=== PATIENT | female | born 1995 | race Caucasian/White ===

== ENCOUNTER 2018-10-27 11:48 | Inpatient (IN) | payer OTHER ==
[2018-10-27] MEDS ORDERED: RINGERS SOLUTION,LACTATED 1,000 ML IV PRN (12:14)
[2018-10-27] MEDS ORDERED: RINGERS SOLUTION,LACTATED 1,000 ML IV ONE (12:14)
--- NOTE | 2018-10-27 12:31 | Admission Physical ---
Datetime Report Generated by CPN: 10/27/2018 12:31 CURRENT ADMISSION Chief Complaint: Uterine Contractions Admit Impression : Term, Intrauterine ; Active Labor Admit Plan: Admit to Unit ALLERGIES Medication Allergies: No Latex: No Latex Allergies Food Allergies: none Environmental Allergies: none OBSTETRICAL HISTORY EDC: 10/30/2018 00:00 : 3 Para: 1 Term: 1 IAB: 1 Livin Gestational Diabetes: No Rh Sensitization: No Incompetent Cervix: No DOMINGO: No Infertility: No ART Treatment: No Uterine Anomaly: No IUGR: No Hx Previous C/S: No Macrosomia: No Hx Loss/Stillborn: No PIH: No Hx : No Placenta Previa/Abruption: No Depression/PP Depression: No PTL/PROM: No Post Hemorrhage: No Current Procedures: Ultrasound Obstetrical History Comments: G1- G2- current SEE RECORDS Alcohol: No Marijuana : No Cocaine: No Other Illicit Drugs: No Cigarettes: Never Smoker. [id number] MEDICAL HISTORY Hosp/Surgery: Yes Anesthetic Complications: No Other Medical Diseases: No Significant Family History: No Trauma/Violence : No Medical History Comments: childbirth PHYSICAL EXAM General: Normal HEENT: Normal Neurologic: Normal Thyroid: Normal Heart: Normal Lungs: Normal Breast: Normal Back: Normal Abdomen: Normal Genitourinary Exam: Normal Extremities: Normal DTRs: Normal Pelvic Type: Adequate Vital Signs: Reviewed; Within Normal Limits VAGINAL EXAM Contraction Comments: q2 MEMBRANES Membranes: Intact FETUS A EGA: 39.4 Monitoring: External US FHR- Baseline: 150 Variability: Moderate 6-25bpm Accelerations: 15X15 Decelerations: None FHR Category: Category I Admit Comment: at 39. 4 wks presents c/o increasing contractions. Denies SROM or bleeding. GBS negative. Ve per RN /-1, Vtx on [place]. EFW 7+7 last week on ultrasound in the office. Plan to admit, pt desires an epidural. Position changes encouraged. Anticipate . Attending MD is Dr Loredo PLANS FOR LABOR AND DELIVERY Labor and Delivery: None Pain Management: Epidural Feeding Preference: Formula Benefit of Breast Feed Discussed: Yes Circumcision: Yes INFORMED CONSENT Assignment: Stalin Loredo MD Signature: with User ID: [email or web address] : with User ID: [email or web address]
[2018-10-27 12:33] LABS: APPEARANCE,URINE CLOUDY; BILIRUBIN,URINE NEGATIVE (NEGATIVE); COLOR,URINE YELLOW; GLUCOSE, URINE NEGATIVE (NEGATIVE); KETONES,URINE NEGATIVE (NEGATIVE); LEUKOCYTE ESTERASE,URINE SMALL (NEGATIVE); NITRITE,URINE NEGATIVE (NEGATIVE); PROTEIN,URINE NEGATIVE (NEGATIVE); URINE SPECIFIC GRAVITY 1.025; UROBILINOGEN,URINE NEGATIVE mg/dL (<2.0)
[2018-10-27 13:01] LABS: ABSOLUTE LYMPHOCYTES (AUTO) 1.1 10^3/uL (0.5-4.7); ABSOLUTE MONOCYTES (AUTO) 0.3 10^3/uL (0.1-1.4); ABSOLUTE NEUT (AUTO) 7.5 10^3/uL (1.7-8.2); BASOPHILS % (AUTO) 0.2 % (0-2); EOSINOPHILS % (AUTO) 0.1 % (0-6); HEMATOCRIT 34.7 % (36.0-47.0); HEMOGLOBIN 11.7 g/dL (12.0-15.5); LYMPHOCYTES % (AUTO) 12.8 % (13-45); MEAN CORPUSCULAR HEMOGLOBIN 29.4 pg (27.0-33.4); MEAN CORPUSCULAR HGB CONC 33.6 g/dL (32.0-36.0); MEAN CORPUSCULAR VOLUME 87 fl (80-97); MONOCYTES % (AUTO) 3.2 % (3-13); PLATELET COUNT 140 10^3/uL (150-450); RED BLOOD COUNT 3.97 10^6/uL (3.72-5.28); RED CELL DISTRIBUTION WIDTH 13.3 % (11.5-14.0); SEGMENTED NEUTROPHILS % (AUTO) 83.7 % (42-78); TOTAL CELLS COUNTED % (AUTO) 100 %
[2018-10-27] MEDS ORDERED: LIDOCAINE 1% INJ-PF (10 MG/ML) 30 ML SDV ONE (13:35)
[2018-10-27] MEDS ORDERED: MISOPROSTOL 0.2 MG TABLET ONE (13:35)
[2018-10-27] MEDS ORDERED: OXYTOCIN/NORMAL SALINE 20 UNIT/1,000 ML RTUINJ ONE (13:35)
[2018-10-27] MEDS ORDERED: PHENYLEPHRINE HCL INJ/PF 10 MG/1 ML SDV ONE (13:38)
[2018-10-27] MEDS ORDERED: FENTANYL CITRATE INJ/PF 100 MCG/2 ML AMPUL ONE (13:38)
[2018-10-27] MEDS ORDERED: EPHEDRINE SULFATE INJ 50 MG/1 ML AMPULE ONE (13:38)
[2018-10-27] MEDS ORDERED: FENTANYL/BUPIVACAINE/NS/PF 0 MCG/0 ML RTUINJ EPI ONE (13:39)
[2018-10-27] MEDS ORDERED: BUPIVACAINE HCL 0.25 % INJ/PF (2.5 MG/1 ML) 30 ML VIAL ONE (13:39)
[2018-10-27] MEDS ORDERED: LIDOCAINE 1.5%/EPINEPHRINE INJ 5 ML AMP ONE (13:39)
[2018-10-27] MEDS ORDERED: BENZOCAINE/MENTHOL AEROSOL SPRAY 56 ML TOP PRN (15:07)
[2018-10-27] MEDS ORDERED: ZOLPIDEM TARTRATE 5 MG TABLET PO PRN (15:07)
[2018-10-27] MEDS ORDERED: MEASLES,MUMPS&RUBELLA VACC/PF 0.5 ML VIAL SUBCUT PRN (15:07)
[2018-10-27] MEDS ORDERED: OXYTOCIN/NORMAL SALINE 20 UNIT/1,000 ML RTUINJ IV PRN (15:07)
[2018-10-27] MEDS ORDERED: ACETAMINOPHEN WITH CODEINE #3 TABLET PO PRN (15:07)
[2018-10-27] MEDS ORDERED: DIBUCAINE 1% OINTMENT 56 GM TP PRN (15:07)
[2018-10-27] MEDS ORDERED: DIPH/PERTUSS(ACELL)/TETANUS VAC/PF 0.5 ML SYR (>=10YO) IM PRN (15:07)
[2018-10-27] MEDS ORDERED: IBUPROFEN 800 MG TABLET ONE (15:28)
[2018-10-27] MEDS: IBUPROFEN 800 MG TABLET PO SCH ×2 (15:32→21:53)
--- NOTE | 2018-10-27 15:49 | Warning Signs in Babies ---
VOD Warning Signs Datetime Report Generated by [facility]: 10/27/2018 15:49 VOD#608 -Warning Signs in Babies: Viewed with Parent(s)/Family (10/27/2018 15:00:Anne Verma RN)
[2018-10-27] MEDS ORDERED: FERROUS SULFATE 325 MG TABLET PO ONE (17:52)
[2018-10-27] MEDS ORDERED: DOCUSATE SODIUM 100 MG CAPSULE ONE (17:52)
[2018-10-27] MEDS: FERROUS SULFATE 325 MG TABLET PO SCH (17:53)
[2018-10-27] MEDS: DOCUSATE SODIUM 100 MG CAPSULE PO SCH (17:53)
[2018-10-28] MEDS: IBUPROFEN 800 MG TABLET PO SCH ×3 (06:26→21:48)
[2018-10-28 08:53] LABS: HEMOGLOBIN 11.8 g/dL (12.0-15.5); MEAN CORPUSCULAR HEMOGLOBIN 29.7 pg (27.0-33.4); MEAN CORPUSCULAR HGB CONC 33.9 g/dL (32.0-36.0); MEAN CORPUSCULAR VOLUME 88 fl (80-97); PLATELET COUNT 148 10^3/uL (150-450); RED BLOOD COUNT 3.99 10^6/uL (3.72-5.28); RED CELL DISTRIBUTION WIDTH 13.4 % (11.5-14.0); WHITE BLOOD COUNT 10.6 10^3/uL (4.0-10.5)
--- NOTE | 2018-10-28 09:03 | Delivery Summary ---
Del Sum A-C Datetime Report Generated by CPN: 10/28/2018 09:02 DELIVERY PERSONNEL DELIVERY PERSONNEL: [id number] Delivery Doctor:: Noelle Barreto, CAROL Nurse Fender Mechanic Apprentice Certified:: Noelle Barreto CNM Labor and Delivery Nurse:: Anne Verma, plan checker Nurse:: Thu Magaña, RNC Student Observers:: Yani Ni, RN Application Project Leader/TUBE BUILDER: Khushboo Ventura TUBE BUILDER II Additional Personnel: : Lindy Balderas, RN MATERNAL INFORMATION Delivery Anesthesia: None Medications After Delivery: Pitocin Bolus-Please Comment Meds After Delivery Comment: pitocin 20 units in 1 L NS bolusing per order Maternal Complications: None Provider Comments: of VMI, delivered Direct OA, Nuchal Cord x 1 easily reduced. Baby boy vigorous and crying , placed on pts abdoman. Cord clamped and cut after one minute. Cord blood collected. Placenta S/C/I, FF with decreased lochia. IV Pitocin infusing, QBL 50 ml. Perineum Intact. Apgars 9,9. Mother and baby left in stable condition, plans to breastfeed. Attending MD is Dr Loredo. LABOR SUMMARY EDC: 10/30/2018 00:00 No. Babies in Womb: 1 Attempted: No Labor Anesthesia: None LABOR INFORMATION Reason for Induction: Not Applicable Onset of Labor: 10/27/2018 09:00 Complete Dilatation: 10/27/2018 14:44 Oxytocin: N/A Group B Beta Strep: negative Antibiotics # of Doses: 0 Steroids Given: None Reason Steroids Not Administered: Not Applicable MEMBRANES Membranes Rupture Method: Artificial Rupture of Membranes: 10/27/2018 14:04 Length of Rupture (hr): 0.83 Amniotic Fluid Color: Clear Amniotic Fluid Amount: Scant Amniotic Fluid Odor: Normal STAGES OF LABOR Stage 1 hr: 5 Stage 1 min: 44 Stage 2 hr: 0 Stage 2 min: 10 Stage 3 hr: 0 Stage 3 min: 4 Total Time in Labor hr: 5 Total Time in Labor min: 58 VAGINAL DELIVERY Episiotomy: None Laceration #1: None Laceration Extension #1: N/A Laceration Repair: Not Applicable Sponge Count Correct: N/A Sharps Count Correct: N/A CSECTION DELIVERY Primary Indication: N/A Secondary Indication: N/A CSection Incidence: N/A Labor: N/A Elective: N/A CSection Incision: N/A BABY A INFORMATION Infant Delivery Date/Time: 10/27/2018 14:54 Method of Delivery: Vaginal Method of Delivery: Vaginal Born in Route : No : N/A Forceps: N/A Vacuum Extraction: N/A Shoulder Dystocia : No PRESENTATION/POSITION BABY A Presentation: Cephalic Cephalic Presentation: Vertex Vertex Position: Right Occipital Anterior Breech Presentation: N/A PLACENTA INFORMATION BABY A Placenta Delivery Time : 10/27/2018 14:58 Placenta Method of Delivery: Spontaneous Placenta Method of Delivery: Spontaneous Placenta Status: Delivered SCORES BABY A Heart Rate 1 min: >100 bpm Resp Effort 1 min: Good Cry Reflex Irritability 1 min: Cough or Sneeze or Pulls Away Muscle Tone 1 min: Active Motion Color 1 min: Body [place], Extremities Blue Resuscitation Effort 1 min: Tactile Stimulation SCORE 1 MIN: 9 Heart Rate 5 min: >100 bpm Resp Effort 5 min: Good Cry Reflex Irritability 5 min: Cough or Sneeze or Pulls Away Muscle Tone 5 min: Active Motion Color 5 min: Body [place], Extremities Blue Resuscitation Effort 5 min: N/A SCORE 5 MIN: 9 Resuscitation Effort 10 min: N/A INFORMATION BABY A Gestational Age at Delivery: 39.4 Gestational Status: Full Term- 39- 40.6 Weeks Infant Outcome : Liveborn Infant Condition : Stable Infant Sex: Male Infant Sex: Male IDENTIFICATION BABY A Verification Date/Time: 10/27/2018 15:19 ID Band Number: [id number] Mother's Name Verified: Yes Infant RN Verifying Infant: CAnna Hoffck RN, MAnna Silverio, RN WEIGHT/LENGTH BABY A Infant Birthweight (gm): 3154 Weight (lb): 6 Weight (oz): 15 Infant Length (in): 20.00 Infant Length (cm): 50.80 CORD INFORMATION BABY A No. Cord Vessels: 3 Nuchal Cord : Around Neck x1, Loose Cord Blood Taken: Yes-For Storage (Mom's Blood type +) Infant Suction: None ASSESSMENT BABY A Infant Complications: None Physical Findings at Delivery: Bruising Physical Findings- Other: facial bruising noted Respirations: Appears Normal Skin to Skin: Yes Skin to Skin: Yes Stitcher Operator/ALS Called : No Infant Care By: J Field RN Transferred To: Remains with Mother BABY B INFORMATION : N/A SIGNATURES Assignment: Stalin Loredo MD Signature: with User ID: [email or web address] : with User ID: [email or web address]
[2018-10-28] MEDS: SENNOSIDES/DOCUSATE 8.6-50 MG 1 EACH TABLET PO SCH (09:55)
[2018-10-28] MEDS: PRENATAL VITAMIN W DHA CAPSULE PO SCH (09:55)
[2018-10-28] MEDS: DOCUSATE SODIUM 100 MG CAPSULE PO SCH ×2 (09:55→18:23)
[2018-10-28] MEDS: FERROUS SULFATE 325 MG TABLET PO SCH ×2 (09:56→18:23)
--- NOTE | 2018-10-28 10:17 | Delivery Summary ---
Del Sum A-C Datetime Report Generated by CPN: 10/28/2018 10:17 DELIVERY PERSONNEL DELIVERY PERSONNEL: [id number] Delivery Doctor:: Noelle Barreto CNM Nurse Teacher Aide Certified:: Noelle Barreto CNM Labor and Delivery Nurse:: Anne Verma RNhead filter press tender Nurse:: KAMARI Ortiz Student Observers:: Yani Ni RN Slider Assembler/ENAMEL CRACKER: Khushboo Ventura CNA II Additional Personnel: : Lindy Balderas, RN MATERNAL INFORMATION Delivery Anesthesia: None Medications After Delivery: Pitocin Bolus-Please Comment Meds After Delivery Comment: pitocin 20 units in 1 L NS bolusing per order Maternal Complications: None Provider Comments: of VMI, delivered Direct OA, Nuchal Cord x 1 easily reduced. Baby boy vigorous and crying , placed on pts abdoman. Cord clamped and cut after one minute. Cord blood collected. Placenta S/C/I, FF with decreased lochia. IV Pitocin infusing, QBL 50 ml. Perineum Intact. Apgars 9,9. Mother and baby left in stable condition, plans to breastfeed. Attending MD is Dr Loredo. LABOR SUMMARY EDC: 10/30/2018 00:00 No. Babies in Womb: 1 Attempted: No Labor Anesthesia: None LABOR INFORMATION Reason for Induction: Not Applicable Onset of Labor: 10/27/2018 09:00 Complete Dilatation: 10/27/2018 14:44 Oxytocin: N/A Group B Beta Strep: negative Antibiotics # of Doses: 0 Steroids Given: None Reason Steroids Not Administered: Not Applicable MEMBRANES Membranes Rupture Method: Artificial Rupture of Membranes: 10/27/2018 14:04 Length of Rupture (hr): 0.83 Amniotic Fluid Color: Clear Amniotic Fluid Amount: Scant Amniotic Fluid Odor: Normal STAGES OF LABOR Stage 1 hr: 5 Stage 1 min: 44 Stage 2 hr: 0 Stage 2 min: 10 Stage 3 hr: 0 Stage 3 min: 4 Total Time in Labor hr: 5 Total Time in Labor min: 58 VAGINAL DELIVERY Episiotomy: None Laceration #1: None Laceration Extension #1: N/A Laceration Repair: Not Applicable Sponge Count Correct: N/A Sharps Count Correct: N/A CSECTION DELIVERY Primary Indication: N/A Secondary Indication: N/A CSection Incidence: N/A Labor: N/A Elective: N/A CSection Incision: N/A BABY A INFORMATION Infant Delivery Date/Time: 10/27/2018 14:54 Method of Delivery: Vaginal Born in Route : No : N/A Forceps: N/A Vacuum Extraction: N/A Shoulder Dystocia : No PRESENTATION/POSITION BABY A Presentation: Cephalic Cephalic Presentation: Vertex Vertex Position: Right Occipital Anterior Breech Presentation: N/A PLACENTA INFORMATION BABY A Placenta Delivery Time : 10/27/2018 14:58 Placenta Method of Delivery: Spontaneous Placenta Status: Delivered SCORES BABY A Heart Rate 1 min: >100 bpm Resp Effort 1 min: Good Cry Reflex Irritability 1 min: Cough or Sneeze or Pulls Away Muscle Tone 1 min: Active Motion Color 1 min: Body [place], Extremities Blue Resuscitation Effort 1 min: Tactile Stimulation SCORE 1 MIN: 9 Heart Rate 5 min: >100 bpm Resp Effort 5 min: Good Cry Reflex Irritability 5 min: Cough or Sneeze or Pulls Away Muscle Tone 5 min: Active Motion Color 5 min: Body [place], Extremities Blue Resuscitation Effort 5 min: N/A SCORE 5 MIN: 9 Resuscitation Effort 10 min: N/A INFORMATION BABY A Gestational Age at Delivery: 39.4 Gestational Status: Full Term- 39- 40.6 Weeks Outcome : Liveborn Infant Condition : Stable Sex: Male IDENTIFICATION BABY A Infant Verification Date/Time: 10/27/2018 15:19 ID Band Number: [id number] Mother's Name Verified: Yes RN Verifying Infant: Gifty Verma RN, Marsha Silverio, RN WEIGHT/LENGTH BABY A Birthweight (gm): 3154 Weight (lb): 6 Infant Weight (oz): 15 Length (in): 20.00 Length (cm): 50.80 CORD INFORMATION BABY A No. Cord Vessels: 3 Nuchal Cord : Around Neck x1, Loose Cord Blood Taken: Yes-For Storage (Mom's Blood type +) Infant Suction: None ASSESSMENT BABY A Infant Complications: None Physical Findings at Delivery: Bruising Physical Findings- Other: facial bruising noted Infant Respirations: Appears Normal Skin to Skin: Yes Export Administrator/ALS Called : No Care By: J Field RN Transferred To: Remains with Mother BABY B INFORMATION : N/A SIGNATURES Assignment: Stalin Loredo MD Signature: with User ID: [email or web address] : with User ID: [email or web address]
--- NOTE | 2018-10-28 12:06 | PDOC PROGRESS REPORT ---
Subjective-OB Progress Note for:: 10/28/18 Subjective: 23yo G3 now P2 s/o ppd 1. Ambulating and voiding without difficulty. Reports pain well controlled with medication. Denies any concerns at this time. Desires early discharge if at all possible. Physical Exam (OB) Vital Signs: Temp Pulse Resp BP Pulse Ox 97.8 F 83 16 106/65 100 10/28/18 08:02 10/28/18 08:02 10/28/18 08:02 10/28/18 08:02 10/28/18 08:02 Intake & Output 10/27/18 10/28/18 10/29/18 06:59 06:59 06:59 Intake Total 1200 300 Balance 1200 300 Weight 69.2 kg - General General Appearance: Appears well In distress: None - PIH/Pre-Eclampsia DTR's: 2 + Clonus: Negative Headache: Absent Epigastric Pain: No Visual Changes: No - Episiotomy/Laceration Site Condition: N/A - Lochia Lochia Amount: Scant < 10 ml Lochia Color: Rubra/Red - Abdomen Description: Soft Hernia Present: No Fundal Description: Firm, Midline Fundal Height: u/u - u/2 - Respiratory Respiratory Status: No respiratory distress - Extremities Upper extremity: Normal inspection Lower extremities: Normal inspection - Neurological Cognition: Normal Orientation: AAOx4 - Psychological Associated symptoms: Normal affect, Normal mood Objective-Diagnostic Laboratory: 10/28/18 07:45 10/27/18 10/27/18 10/27/18 12:00 12:48 12:48 WBC 9.0 RBC 3.97 Hgb 11.7 L Hct 34.7 L MCV 87 MCH 29.4 MCHC 33.6 RDW 13.3 Plt Count 140 L Seg Neutrophils % 83.7 H Lymphocytes % 12.8 L Monocytes % 3.2 Eosinophils % 0.1 Basophils % 0.2 Absolute Neutrophils 7.5 Absolute Lymphocytes 1.1 Absolute Monocytes 0.3 Absolute Eosinophils 0.0 Absolute Basophils 0.0 Urine Color YELLOW Urine Appearance CLOUDY Urine pH 6.0 Ur Specific [place] 1.025 Urine Protein NEGATIVE Urine Glucose (UA) NEGATIVE Urine Ketones NEGATIVE Urine Blood LARGE H Urine Nitrite NEGATIVE Ur Leukocyte Esterase SMALL H Blood Type A POSITIVE Antibody Screen NEGATIVE 10/28/18 07:45 WBC 10.6 H RBC 3.99 Hgb 11.8 L Hct 35.0 L MCV 88 MCH 29.7 MCHC 33.9 RDW 13.4 Plt Count 148 L Seg Neutrophils % Lymphocytes % Monocytes % Eosinophils % Basophils % Absolute Neutrophils Absolute Lymphocytes Absolute Monocytes Absolute Eosinophils Absolute Basophils Urine Color Urine Appearance Urine pH Ur Specific [place] Urine Protein Urine Glucose (UA) Urine Ketones Urine Blood Urine Nitrite Ur Leukocyte Esterase Blood Type Antibody Screen Assessment and Plan(PN) - Assessment and Plan (1) Delivery normal Is this a current diagnosis for this admission?: Yes Plan: Routine pp care will discharge as desired if baby is discharged by supervisor production managing. - Time Spent with Patient Time with patient: Less than 15 minutes Medications reviewed and adjusted accordingly: Yes - Disposition Anticipated Discharge: Home Within: within 24 hours
[2018-10-29] MEDS: IBUPROFEN 800 MG TABLET PO SCH ×2 (05:13→14:00)
[2018-10-29 09:11] VITALS: BP 107/64
[2018-10-29] MEDS: FERROUS SULFATE 325 MG TABLET PO SCH (09:22)
[2018-10-29] MEDS: DOCUSATE SODIUM 100 MG CAPSULE PO SCH (09:22)
[2018-10-29] MEDS: PRENATAL VITAMIN W DHA CAPSULE PO SCH (09:22)
[2018-10-29] MEDS: SENNOSIDES/DOCUSATE 8.6-50 MG 1 EACH TABLET PO SCH (09:23)
--- NOTE | 2018-10-29 09:46 | PDOC PROGRESS REPORT ---
Subjective-OB Progress Note for:: 10/29/18 Subjective: Ready to go home. Physical Exam (OB) Vital Signs: Temp Pulse Resp BP Pulse Ox 98.1 F 72 14 107/64 100 10/29/18 08:15 10/29/18 08:15 10/29/18 08:15 10/29/18 08:15 10/29/18 08:15 Intake & Output 10/28/18 10/29/18 10/30/18 06:59 06:59 06:59 Intake Total 1200 300 Balance 1200 300 Weight 69.2 kg - PIH/Pre-Eclampsia DTR's: 2 + Clonus: Negative Headache: Absent Epigastric Pain: No Visual Changes: No - Lochia Lochia Amount: Scant < 10 ml Lochia Color: Serosa/Brown - Abdomen Description: Soft Hernia Present: No Bowel Sounds: Normoactive Flatus Presence: Present Stool: No Fundal Description: Firm Fundal Height: u/u - u/2 Objective-Diagnostic Laboratory: 10/28/18 07:45 Assessment and Plan(PN) - Time Spent with Patient Medications reviewed and adjusted accordingly: Yes - Disposition Anticipated Discharge: Home
--- NOTE | 2018-10-29 09:51 | PDOC DISCHARGE SUMMARY ---
Final Diagnosis Discharge Date: 10/29/18 - Final Diagnosis (1) Delivery normal Is this a current diagnosis for this admission?: Yes (2) Is this a current diagnosis for this admission?: Yes Discharge Data - Discharge Medication Prescriptions: Ibuprofen [Motrin 800 mg Tablet] 800 mg PO Q8HP PRN #30 tablet PRN Reason: Abdominal Cramping Home Medications: Vits96/Iron Fum/Folic [ Tablet] 1 tab PO DAILY 10/27/18 Ibuprofen [Motrin 800 mg Tablet] 800 mg PO Q8HP PRN #30 tablet 10/28/18 Gestational Age: 39.4 wks Reason(s) for Admission: Onset of Labor Procedures: Ultrasound Intrapartum Procedure(s): Spontaneous Vaginal Delivery - [place] Data Baby 1 Male at 1 minute: 9 at 5 minutes: 9 Weight: 3.147 kg Home with Mother: Yes Complications: No - Diagnosis Test Laboratory: Temp Pulse Resp BP Pulse Ox 98.1 F 72 14 107/64 100 10/29/18 08:15 10/29/18 08:15 10/29/18 08:15 10/29/18 08:15 10/29/18 08:15 10/27/18 10/27/18 10/28/18 12:00 12:48 07:45 RBC 3.97 3.99 Hgb 11.7 L 11.8 L Hct 34.7 L 35.0 L Urine Opiates Screen Cancelled - Discharge information/Instructions Discharge Activity: Activity As Tolerated, Balance Activity w/Rest, No Lifting Over 10 Pounds, Pelvic Rest, Slowly Increase Activity, No tub bath, Walk Frequently Discharge Diet: Regular Disposition: HOME, SELF-CARE Follow [facility]: [facility] in: 4, Weeks
== END 2018-10-29 14:45 | disposition home or self-care (01) | DRG 807 ==
LOC: LC 11:48 → LR 12:16 → 2S 18:00
PROVIDERS: ADMIT Obstetrics & Gynecology; ATTEND Obstetrics & Gynecology
PROC: 10E0XZZ Delivery of Products of Conception, External Approach (ICD-10-PCS; principal; 2018-10-27)
DX: O69.81X0 Labor and delivery complicated by cord around neck, without compression, not applicable or unspecified (principal); Z37.0 Single live birth; Z3A.39 39 weeks gestation of pregnancy
CPT/HCPCS: 36415; 81005; 85025; 85027; 86592; 86850; 86900; 86901; 94760; J2370; J2590; J3010; J3490